=== PATIENT | male | born 1995 | race Caucasian/White ===

== ENCOUNTER 2017-09-14 14:51 | Emergency (ER) | payer SELFPAY ==
[~2017-09-14] VITALS: Ht 167.6 cm; Wt 64.0 kg
[2017-09-14 19:15] VITALS: BP 110/59
== END 2017-09-14 19:45 | disposition home or self-care (01) ==
LOC: ER 15:17
DX: S30.817A Abrasion of anus, initial encounter (principal); F72 Severe intellectual disabilities; X83.8XXA Intentional self-harm by other specified means, initial encounter; Y93.89 Activity, other specified; Y92.89 Other specified places as the place of occurrence of the external cause; Y99.8 Other external cause status
CPT/HCPCS: 99283